=== PATIENT | female | born 1960 | race Two or more races ===

== ENCOUNTER 2023-07-29 15:49 | Emergency (ER) | payer OTHER ==
[2023-07-29] MEDS ORDERED: Sodium Chloride 0.9% 10 ML Syringe FLUSH PRN (16:07)
[2023-07-29] MEDS ORDERED: Propofol 200 MG/20 ML SDV IVPUSH ONE (16:09)
[2023-07-29] MEDS ORDERED: Lactated Ringers 1,000 ML IV SCH (16:15)
== END 2023-07-29 17:10 | disposition home or self-care (01) ==
LOC: JD.ED 15:49
DX: S52.591A Other fractures of lower end of right radius, initial encounter for closed fracture (principal); W19.XXXA Unspecified fall, initial encounter; Z79.899 Other long term (current) drug therapy
CPT/HCPCS: 25605; 73100; 99152; 99283; J2704; J7120

== ENCOUNTER 2023-12-26 06:15 | Day surgery (SDC) | payer OTHER ==
[~2023-12-26 06:15] MED LIST: Lactated Ringers 1,000 ML IV SCH; Sodium Chloride 0.9% 10 ML Syringe FLUSH PRN; Sodium Chloride 0.9% 10 ML Syringe FLUSH SCH
[2023-12-26] MEDS: Bupivacaine 0.25% 10 ML SDV ONE (07:31)
[2023-12-26] MEDS: Lidocaine 1% 10 ML MDV ONE (07:31)
== END 2023-12-26 08:00 | disposition home or self-care (01) ==
LOC: JD.SDS 06:15
PROVIDERS: ATTEND Orthopaedic Surgery
DX: G56.11 Other lesions of median nerve, right upper limb (principal)
CPT/HCPCS: 64721; J0665; J3490